=== PATIENT | male | born 1965 | race Caucasian/White ===

== ENCOUNTER 2016-07-14 16:53 | Observation (INO) | payer BC ==
--- NOTE | ~2016-07-14 | HP ---
History And Physical [place] [id number] [facility] [place]. [address] NAME: ANEUDY LABOY : 65 STATUS : ADM Mukesh PAT#: [id number] AGE: 51 ADM/REG DATE : 07/14/16 MR#: [id number] REPORT SERV DATE: 07/15/16 DICTATED BY: GEOVANNA ROMERO DATE: 07/15/16 REPORT STATUS : Draft TRANSCRIBED BY: MODLuis DATE: 07/15/16 DATE OF ADMISSION: 07/14/2016 CHIEF COMPLAINT: Chest pain. HISTORY OF PRESENT ILLNESS: A pleasant 51-year-old white gentleman with no known history of CAD, who presents to our facility complaining of two months of episodic chest pain described as a pressure. He states these events occur randomly. There is no pattern, no exertional component described. He reports some associated dizziness. Denies any shortness of breath, nausea, diaphoresis, or belching. At its most intense, he rates the chest pain a 4/10. At the time of interview and in the CPOU, he rates it a 1/10. He states most episodes last 1 minute in duration, but recently they have become "more constant." The patient denies any personal history of myocardial infarction, stroke, DVT, or pulmonary embolus. The patient denies any recent fever or chills. No palpitations. No syncopal episodes. Denies PND or orthopnea. PAST MEDICAL HISTORY: 1. Self reports episode of elevated blood pressure and triglycerides. 2. Denies hypertension, dyslipidemia, or diabetes. 3. Positive family history of early CAD. 4. Former tobacco abuse. PAST SURGICAL HISTORY: Tonsils and adenoids. SOCIAL HISTORY: He is with a blended family of six children. 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 Does not have a structured exercise routine. Quit smoking two months ago, prior to that was one pack per day for approximately 15 years on and off. Denies alcohol or illicits. FAMILY HISTORY: Father with a heart attack at 45, remains alive at 74. Mother with a stroke in her 60s, alive at 69. REVIEW OF SYSTEMS: A 14-point review of systems performed, significant for HPI including snores per report with no formal sleep study. Currently taking supplements for digestion and blood pressure that he found online. Reports two months ago some readings of systolic blood pressure of 190. Current blood pressure readings at home of 130-140/70-80. Otherwise, complete review of systems obtained and negative. ALLERGIES: TO PENICILLIN. HOME MEDICATIONS: 1. Vitamin C 2000 mg daily. 2. Ibuprofen p.r.n. 3. Vitamin E 250 units daily. 4. Cinnamon bark one tablet daily. History And Physical [address] [address] NAME: ANEUDY LABOY : 65 STATUS : ADM Mukesh PAT#: [id number] AGE: 51 ADM/REG DATE : 07/14/16 MR#: [id number] REPORT SERV DATE: 07/15/16 DICTATED BY: GEOVANNA ROMERO DATE: 07/15/16 REPORT STATUS : Draft TRANSCRIBED BY: TERESA DATE: 07/15/16 5. Gymnema-jr daily. 6. Nattokinase daily. PHYSICAL EXAMINATION: BLOOD PRESSURE: Bilateral blood pressures on arrival, right 161/86, left 152/90, this morning 133/78. PULSE: 80. RESPIRATORY RATE: 18. TEMPERATURE: 98.0. O2 saturation 94% on room air. HEIGHT: 6 feet 0 inches. WEIGHT: 241 pounds. BMI: 33. GENERAL: Cooperative, in no apparent distress. HEENT: Pupils 2 mm, sclera nonicteric. Nares patent. Moist mucous membranes. No xanthelasma. NECK: Trachea midline. No thyromegaly. No JVD. No bruits. LYMPH: No cervical lymphadenopathy. No supraclavicular lymphadenopathy. RESPIRATORY: Unlabored respirations. Breath sounds clear bilaterally to posterior auscultation. No wheezes or rhonchi. CARDIOVASCULAR: Regular rate. No murmur, rub or gallop appreciated. Extremities without edema. Pulses 2+ bilaterally. ABDOMEN: Soft, nontender, and nondistended. Normal bowel sounds auscultated throughout. No organomegaly. SKIN: Warm and dry extremities. No pallor, or cyanosis. PSYCHIATRIC: Appropriate affect. Alert and oriented x3. LABORATORY DATA: Troponin less than 0.02 x3. Potassium 4.1, BUN 8, creatinine 0.97, glucose 105, and magnesium 2.1. WBC 5.7, hemoglobin 14.9, hematocrit 40.9, and platelet count 188,000. EKG sinus rhythm. Inferior Q-waves, LASB possible anterior infarct. ASSESSMENT AND PLAN: 1. Chest pain. The patient has been observed in the CPOU overnight to rule out myocardial infarction with serial enzymes and serial EKGs and held n.p.o. We will proceed with MPI today. The patient will be discharged home if low risk, no ischemia. If anything suggestive of ischemia, Cardiology referral will be initiated. Otherwise, the patient will be asked to follow up with Dr. Pereira in one to two weeks with all studies being sent to that office. 2. Reports episodes of elevated blood pressure, now taking herbal supplement Nattokinase, and will monitor blood pressure. Recommend a diary of readings to PCP at followup. 3. Reports history of elevated triglycerides. We will check a fasting lipid panel. 4. Recently quit smoking. Congratulated on recent cessation. Benefits of not smoking discussed. ОЛЕГ/TERESA Geovanna Romero, MSN, [employer] History And Physical [address] [address] NAME: ANEUDY LABOY : 65 STATUS : ADM Mukesh PAT#: [id number] AGE: 51 ADM/REG DATE : 07/14/16 MR#: [id number] REPORT SERV DATE: 07/15/16 DICTATED BY: GEOVANNA ROMERO DATE: 07/15/16 REPORT STATUS : Draft TRANSCRIBED BY: TERESA DATE: 07/15/16 / [id number] CC: Geovanna Romero, MSN, [employer] José Miguel Pereira MD
[2016-07-14 16:37] LABS: BASOPHILS 0.4 %; BASOPHILS ABSOLUTE 0.02 10/3/uL (0.0-0.16); EOSINOPHILS 2.8 %; EOSINOPHILS ABSOLUTE 0.16 10/3/uL (0.0-0.53); ER CBC TAT 0 Hrs 07 Mins; HEMATOCRIT 40.9 % (40.0-51.0); HEMOGLOBIN 14.9 g/dL (13.6-17.8); IMMATURE GRANULOCYTES 0.4 %; IMMATURE GRANULOCYTES ABSOLUTE 0.02 10/3/uL (0.0-0.11); LYMPHOCYTES ABSOLUTE 2.28 10/3/uL (0.67-4.30); MEAN CORPUS HGB CONC 36.4 g/dL (32.0-36.0); MEAN CORPUSCULAR HEMOGLOB 32.2 pg (26.0-34.0); MEAN CORPUSCULAR VOLUME 88.3 fL (80-100); MEAN PLATELET VOLUME 9.5 fL (9.2-13.0); MONOCYTES 9.1 %; MONOCYTES ABSOLUTE 0.52 10/3/uL (0.21-1.20); NEUTROPHILS 47.3 %; PLATELET COUNT 188 10/3/uL (150-400); RBC DISTRIBUTION WIDTH 12.2 % (12.0-16.0); RED CELL COUNT 4.63 10/6/uL (4.7-6.1); WHITE BLOOD CELLS 5.7 10/3/uL (4.5-10.5)
[2016-07-14 16:38] LABS: MANUAL DIFF NO %
[2016-07-14 16:46] LABS: PARTIAL THROMBO TIME 30.3 SEC (22.5-37.2); PROTIME (NOT ORD) 13.2 SEC (12.0-14.5)
[2016-07-14 16:52] LABS: BUN (BLOOD UREA NITROGEN) 8 MG/DL (6-23); CALCIUM, SERUM 9.3 MG/DL (8.5-10.4); CHEST PAIN PROFILE TAT 0 Hrs 22 Mins; CHLORIDE, SERUM 106 MMOL/L (96-112); CO2 (CARBON DIOXIDE) 33 MMOL/L (24-34); CREATININE 0.97 MG/DL (0.70-1.30); GFR AFRICAN AMERICAN 104 ML/MIN (>=60); GFR NON AFRICAN AMERICAN 90 ML/MIN (>=60); GLUCOSE, SERUM 105 MG/DL (60-99); POTASSIUM, SERUM 4.1 MMOL/L (3.5-5.3); SODIUM, SERUM 143 MMOL/L (135-148); TROPONIN I <0.02 NG/ML (<0.05)
[2016-07-14] MEDS ORDERED: IBU-200200 MG PO (18:38)
[2016-07-14] MEDS ORDERED: VITC500 PO (18:39)
[2016-07-14] MEDS ORDERED: VITE PO (18:39)
[2016-07-14] MEDS ORDERED: CINNAMON BARK PO (18:40)
[2016-07-14] MEDS ORDERED: GYMNEMA SYLVESTRE (18:41)
[2016-07-14] MEDS ORDERED: NATTOKINASE (18:42)
[2016-07-15 09:35] LABS: CHOL/HDL RATIO(NOT ORDER) 5.6 (0-5)
== END 2016-07-15 13:11 | disposition home or self-care (01) ==
LOC: ER 16:53 → CDU1 18:46 → CDU2 19:36
PROVIDERS: Clinical Nurse Specialist; Emergency Medicine
DX: R07.9 Chest pain, unspecified (principal); R07.89 Other chest pain; Z82.49 Family history of ischemic heart disease and other diseases of the circulatory system; Z87.891 Personal history of nicotine dependence; Z90.89 Acquired absence of other organs; Z88.0 Allergy status to penicillin; Z79.899 Other long term (current) drug therapy
CPT/HCPCS: 70450; 71010; 78452; 80048; 80061; 83735; 84484; 85025; 85610; 85730; 93005; 93017; 99285; A9270-GY; A9502; G0378